=== PATIENT | male | born 1960 | race Caucasian/White ===

== ENCOUNTER 2017-09-23 11:55 | Outpatient (CLI) | payer BC | END 2017-09-23 11:56 | disposition home or self-care (01) | LOC: BICRAD 11:55 | PROVIDERS: ATTEND Internal Medicine | DX: R06.00 Dyspnea, unspecified (principal) | CPT/HCPCS: 71046 ==

== ENCOUNTER 2017-09-25 07:29 | Outpatient (CLI) | payer BC ==
--- NOTE | 2017-10-02 10:50 | PFT ---
PATIENT HISTORY: HEIGHT: 66 IN WEIGHT:158 SMOKER: NO HOW LONG: NA PACKS PER DAY PRODUCTIVE COUGH: NO LUNG DISEASE: PHYSICIAN INTERPRETATION FINAL REPORT: Impregnator And Drier Helper comment, The patient had good effort FVC 5.97 (145%), FEV1 4.21 (141%), FEV1/FVC 0.70 There is an elevated FVC and an FEV1. The ratio is normal suggesting no evidence of obstructive airflow limitation. There was no obstructive profile on the flow volume loops. Lung volume data is clearly of poor quality, likely due to testing or machine error and will not be interpreted. IMPRESSION: Overall, spirometry is likely normal and does not suggest any obstructive airflow limitation. Impregnator And Drier Helper: DEXTER Emergency Response Technician: DEXTER GARCIA
== END 2017-09-25 07:30 | disposition home or self-care (01) ==
LOC: CP 07:29
PROVIDERS: ATTEND Internal Medicine
DX: R06.00 Dyspnea, unspecified (principal)
CPT/HCPCS: 36415; 80053; 80061; 81003; 82306; 83520; 84153; 84439; 84443; 85027; 85652; 86038; 86140; 86200; 86225; 94150; 94727

== ENCOUNTER 2018-12-03 11:58 | Outpatient (CLI) | payer BC ==
--- NOTE | 2018-12-03 12:27 | RAD ---
EXAM: Chest 2 views: HISTORY: Cough COMPARISON: None. FINDINGS: There is a normal-sized cardiomediastinal silhouette. There is no evidence of consolidation, mass, or pleural effusion. The bones are unremarkable. IMPRESSION: No evidence of acute cardiopulmonary disease
== END 2018-12-03 11:59 | disposition home or self-care (01) ==
LOC: BICRAD 11:58
PROVIDERS: ATTEND Internal Medicine
DX: R05 Cough (principal)
CPT/HCPCS: 71046